=== PATIENT | male | born 1990 | race Caucasian/White ===

== ENCOUNTER 2020-09-09 00:13 | Emergency (ER) | payer OTHER ==
[~2020-09-09 00:13] MED LIST: BACTRIM 400-801 EACH; BACTRIM DS TAB1 EACH PO; NORCO 5-325 TA1 EACH PO; TRAMADOL 50 MG50 MG
== END 2020-09-09 01:55 ==
LOC: M.ERS 00:13
DX: Z02.89 Encounter for other administrative examinations (principal)